=== PATIENT | male | born 1980 | race Caucasian/White ===

== ENCOUNTER 2023-04-16 01:45 | Emergency (ER) | payer OTHER ==
[2023-04-16 01:53] VITALS: BP 119/78; O2SAT 95
[2023-04-16] MEDS ORDERED: Zofran 4 MG/2 ML VIAL IV ONE (01:56)
[2023-04-16] MEDS ORDERED: TORAdol 30 mg Injection IV ONE (01:56)
--- NOTE | 2023-04-16 02:00 | ERPHSYRPT ---
- History of Present Illness Time Seen by Provider: 04/16/23 01:58 Source: patient Exam Limitations: no limitations Physician History: Patient is 42-year-old male with significant past medical history of recurrent migraine attacks started having another migraine episode at around 10 PM last night. Patient came to the emergency room at around 2:00 in the morning. Patient having a similar attack of migraine he has before mainly in the frontal area with photophobia. Patient denies any fever chills nausea vomiting or head injury. Timing/Duration: today Quality: stabbing Head Pain Location: frontal Severity of Pain-Max: severe Severity of Pain-Current: severe Recent Head Trauma: frequent headaches Modifying Factors: Improves With: exposure to light Associated Symptoms: denies symptoms Previous symptoms: same symptoms as today Allergies/Adverse Reactions: Sulfa (Sulfonamide Antibiotics) Allergy (Verified 04/16/23 01:50) - Review of Systems Constitutional: No Fever, No Chills Eyes: No Symptoms Ears, Nose, & Throat: No Symptoms Respiratory: No Cough, No Dyspnea Cardiac: No Chest Pain, No Edema, No Syncope Abdominal/Gastrointestinal: No Abdominal Pain, No Nausea, No Vomiting, No Diarrhea Genitourinary Symptoms: No Dysuria Musculoskeletal: No Back Pain, No Neck Pain Skin: No Rash Neurological: Headache, No Dizziness, No Focal Weakness, No Sensory Changes Psychological: No Symptoms Endocrine: No Symptoms All Other Systems: Reviewed and Negative - Past Medical History Pertinent Past Medical History: Yes Neurological History: Migraines ENT History: No Pertinent History Cardiac History: No Pertinent History Respiratory History: No Pertinent History Endocrine Medical History: No Pertinent History Musculoskeletal History: No Pertinent History GI Medical History: No Pertinent History History: No Pertinent History Psycho-Social History: No Pertinent History Male Reproductive Disorders: No Pertinent History - Past Surgical History Past Surgical History: No Neuro Surgical History: No Pertinent History Cardiac: No Pertinent History Respiratory: No Pertinent History Gastrointestinal: No Pertinent History Genitourinary: No Pertinent History Musculoskeletal: No Pertinent History Male Surgical History: No Pertinent History - Social History Drug Use: none - Nursing Vital Signs Nursing Vital Signs: Initial Vital Signs Temperature 97.6 F 04/16/23 01:45 Pulse Rate 64 04/16/23 01:45 Respiratory Rate 18 04/16/23 01:45 Blood Pressure 119/78 04/16/23 01:45 O2 Sat by Pulse Oximetry 95 04/16/23 01:45 Pain Scale Pain Intensity 10 - Physical Exam General Appearance: moderate distress, alert Eye Exam: PERRL/EOMI Ears, Nose, Throat Exam: normal ENT inspection, moist mucous membranes Neck Exam: normal inspection, supple, full range of motion, No meningismus Respiratory Exam: normal breath sounds, lungs clear Cardiovascular Exam: regular rate/rhythm, normal heart sounds Gastrointestinal/Abdominal Exam: soft, No tenderness, No distention Back Exam: normal inspection, normal range of motion Mental Status Exam: alert, oriented x 3, 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 Exam: normal speech, PERRL, No facial droop Coordination/Gait Exam: normal cerebellar function Motor/Sensory Exam: no motor deficit, no sensory deficit Skin Exam: normal color, warm, dry, No rash SpO2: 95 - Course Nursing assessment & vital signs reviewed: Yes Ordered Tests: Active Orders 24 hr Category Date Time Status Oxygen-ED Only Nasal Cannula 2 lpm Care 04/16/23 01:56 Active Medication Summary Generic Name Dose Route Start Last Admin Trade Name Freq PRN Reason Stop Dose Admin Sodium Chloride 1,000 mls @ 999 mls/hr 04/16/23 02:01 04/16/23 02:18 Sodium Chloride 0.9% 1000 Ml IV 04/16/23 03:01 999 mls/hr .Q1H1M STA Administration Discontinued Medications Generic Name Dose Route Start Last Admin Trade Name Freq PRN Reason Stop Dose Admin Droperidol 1.25 mg 04/16/23 01:56 04/16/23 02:19 Droperidol 5 Mg/2 Ml Vial IV 04/16/23 01:57 1.25 mg STAT ONE Administration Droperidol Confirm 04/16/23 02:13 Droperidol 5 Mg/2 Ml Vial Administered 04/16/23 02:14 Dose 5 mg .ROUTE .STK-MED ONE Sodium Chloride Confirm 04/16/23 02:13 Sodium Chloride 0.9% 1000 Ml Administered 04/16/23 02:14 Dose 1,000 mls @ ud .ROUTE .STK-MED ONE Ketorolac Tromethamine 30 mg 04/16/23 01:56 04/16/23 02:18 Ketorolac Tromethamine 30 Mg/Ml Inj IV 04/16/23 01:57 30 mg STAT ONE Administration Ketorolac Tromethamine Confirm 04/16/23 02:13 Ketorolac Tromethamine 30 Mg/Ml Inj Administered 04/16/23 02:14 Dose 30 mg .ROUTE .STK-MED ONE Ondansetron HCl 4 mg 04/16/23 01:56 04/16/23 02:18 Ondansetron Hcl 4 Mg/2 Ml Vial IV 04/16/23 01:57 4 mg STAT ONE Administration Ondansetron HCl Confirm 04/16/23 02:13 Ondansetron Hcl 4 Mg/2 Ml Vial Administered 04/16/23 02:14 Dose 4 mg .ROUTE .STK-MED ONE - Progress Progress: improved Air Movement: good Progress Note: 04/16/23 02:49 Patient is in deep sleep. Headache appears to be improving Blood Culture(s) Obtained: No Antibiotics given: No Counseled pt/family regarding: diagnosis, need for follow-up - Departure Departure Disposition: Home Clinical Impression: Migraine headache Qualifiers: Migraine type: unspecified Status migrainosus presence: without status migrainosus Intractability: intractable Qualified Code(s): G43.919 - Migraine, unspecified, intractable, without status migrainosus Condition: Stable Critical Care Time: No Referrals: DOCTOR,NO FAMILY [NON-STAFF PHY W/O PRIVILEGES] - Follow up with PCP 2 days Instructions: Headache, Adult (DC) Additional Instructions: Discharge/Care Plan CAMILLE STOVER was seen on 04/16/23 in the Emergency Room. The patient was counseled regarding Diagnosis,Lab results, Imaging studies, need for follow up and when to return to the Emergency Room. Prescriptions given: Discharge Note I have spoken with the patient and/or caregivers. I have explained the patient's condition, diagnosis and treatment plan based on the information available to me at this time. I have answered the patient's and/or caregiver's questions and addressed any concerns. The patient and/or caregivers have as good understanding of the patient's diagnosis, condition and treatment plan as can be expected at this point. The vital signs have been stable. The patient's condition is stable and appropriate for discharge from the emergency department. The patient will pursue further outpatient evaluation with the primary care physician or other designated or consulting physician as outlined in the discharge instructions. The patient and/or caregivers are agreeable to this plan of care and follow-up instructions have been explained in detail. The patient and/or caregivers have received these instruction. The patient/and or caregivers are aware that any significant change in condition or worsening of symptoms should prompt an immediate return to this or the closest emergency department or call 911. Prescriptions: Indomethacin 25 mg [Indocin 25 MG] 25 mg PO TID PRN #30 cap PRN Reason: Headache
[2023-04-16] MEDS ORDERED: Sodium Chloride 0.9% 1000 ML 1,000 ML IV STA (02:01)
[2023-04-16] MEDS ORDERED: Zofran 4 MG/2 ML VIAL ONE (02:13)
[2023-04-16] MEDS ORDERED: TORAdol 30 mg Injection ONE (02:13)
[2023-04-16] MEDS ORDERED: Sodium Chloride 0.9% 1000 ML 1,000 ML ONE (02:13)
[2023-04-16 02:59] VITALS: PULSE 52
== END 2023-04-16 03:08 | disposition home or self-care (01) ==
LOC: ED 01:45
DX: G43.919 Migraine, unspecified, intractable, without status migrainosus (principal)
CPT/HCPCS: 96374; 96375; 99283; J1885; J2405

== ENCOUNTER → 2023-08-07 | Emergency (ER) | payer OTHER ==
[~2023-08-07] MED LIST: BACIGUENT PACKET ONE; TORAdol 30 mg Injection IJ ONE; TORAdol 30 mg Injection ONE; TYLENOL 325 MG ONE
--- NOTE | 2023-08-07 08:49 | XRAY ---
Indication: Pain following fall. Comparison: None 2 view left femur demonstrates mild medial knee joint space narrowing. No other bony, articular, or soft tissue abnormalities.
== END ==
LOC: ED 01:00
DX: S70.12XA Contusion of left thigh, initial encounter (principal); W01.198A Fall on same level from slipping, tripping and stumbling with subsequent striking against other object, initial encounter; Y93.01 Activity, walking, marching and hiking; Y92.69 Other specified industrial and construction area as the place of occurrence of the external cause; Y99.0 Civilian activity done for income or pay; M79.652 Pain in left thigh; Z72.0 Tobacco use
CPT/HCPCS: 73552; 80307; 99282; J1885; A9270-GY

== ENCOUNTER 2024-01-27 19:25 | Emergency (ER) | payer BC, OTHER ==
[2024-01-27 19:44] VITALS: RESP 18; TEMP 97.9
--- NOTE | 2024-01-27 19:48 | ERPHSYRPT ---
- History of Present Illness Time Seen by Provider: 01/27/24 19:37 Source: patient Exam Limitations: no limitations Patient Subjective Stated Complaint: pt states that he woke up this morning with sharp pain to the rt side of the head Triage Nursing Assessment: pt ambulated into the er; pt is axo x4; c/o headache; pt states 10/10 pain; pupils 4 mm and PERRL; strong jeanmarie gizzard skin remover and pushes; steady easy gait; denies trauma or injury; denies N/V/D; denies dizziness; denies LOC; skin PDW; no respitatory distress; vital wnl Physician History: For the past 12 hours pt has had a sharp intermittent right occipital headache w ith episodes lasting less than 1 second & intensity of 10/10; denies tingling/numbness, fever, weakness, chest pain, shortness of air, nausea, vomiting. Allergies/Adverse Reactions: Sulfa (Sulfonamide Antibiotics) Allergy (Verified 01/27/24 19:35) Home Medications: No Reportable Medications [No Reported Medications] 01/27/24 [History] Hx Tetanus, Diphtheria Vaccination/Date Given: Yes Hx Influenza Vaccination/Date Given: Yes Hx Pneumococcal Vaccination/Date Given: No Travel Risk - International Travel Have you traveled outside of the country in past 3 weeks: No - Emerging Infectious Disease Are you exhibiting symptoms associated with any current EIDs: No - Review of Systems Constitutional: No Fever Respiratory: No Dyspnea Cardiac: No Chest Pain Abdominal/Gastrointestinal: No Abdominal Pain, No Nausea, No Vomiting Neurological: Headache - Past Medical History Pertinent Past Medical History: Yes Neurological History: Migraines ENT History: No Pertinent History Cardiac History: No Pertinent History Respiratory History: No Pertinent History Endocrine Medical History: No Pertinent History Musculoskeletal History: No Pertinent History GI Medical History: No Pertinent History History: No Pertinent History Psycho-Social History: No Pertinent History Male Reproductive Disorders: No Pertinent History - Past Surgical History Past Surgical History: No Neuro Surgical History: No Pertinent History Cardiac: No Pertinent History Respiratory: No Pertinent History Gastrointestinal: No Pertinent History Genitourinary: No Pertinent History Musculoskeletal: No Pertinent History Male Surgical History: No Pertinent History - Social History Smoking Status: Current every day smoker Exposure to second hand smoke: No Drug Use: none Patient Lives Alone: No - Nursing Vital Signs Nursing Vital Signs: Initial Vital Signs Temperature 97.9 F 01/27/24 19:36 Pulse Rate 77 04/06/24 19:36 Respiratory Rate 18 01/27/24 19:36 Blood Pressure 130/78 01/27/24 19:36 O2 Sat by Pulse Oximetry 97 01/27/24 19:36 Pain Scale Pain Intensity 10 - Physical Exam General Appearance: alert Eye Exam: PERRL/EOMI Ears, Nose, Throat Exam: TMs normal, pharyngeal erythema Neck Exam: normal inspection Respiratory Exam: lungs clear Cardiovascular Exam: normal heart sounds Gastrointestinal/Abdominal Exam: normal bowel sounds Mental Status Exam: alert, 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 A mucosal retention cyst within the left maxillary sinus.) Ordered Tests: Active Orders 24 hr Category Date Time Status IV Insertion STAT Care 01/27/24 19:54 Active HEAD WITHOUT CONTRAST [CT] Stat Exams 01/27/24 19:53 Completed Medication Summary Discontinued Medications Generic Name Dose Route Start Last Admin Trade Name Freq PRN Reason Stop Dose Admin Hydrocodone Bitart/Acetaminophen 2 tab 01/27/24 19:53 01/27/24 19:57 Hydrocodone/Apap 5/325 1 Tab Tablet PO 01/27/24 19:54 2 tab STAT ONE Administration Hydrocodone Bitart/Acetaminophen Confirm 01/27/24 19:55 Hydrocodone/Apap 5/325 1 Tab Tablet Administered 01/27/24 19:56 Dose 2 tab .ROUTE .K-MED ONE Lab/Rad Data: Laboratory Results 01/27/24 01/27/24 Range/Units 20:15 20:15 Influenza Type A Ag NEGATIVE (NEGATIVE) Influenza Type B Ag NEGATIVE (NEGATIVE) RSV (PCR) NEGATIVE (NEGATIVE) SARS-CoV-2 (PCR) NEGATIVE (NEGATIVE) Group A Strep Antibody NOT DETECTED (NEGATIVE) - Progress Progress: improved Counseled pt/family regarding: lab results, diagnosis, need for follow-up, rad results Medical Desision Making - Diagnostic Testing Diagnostic test were ordered, analyzed, and reviewed by me: Yes Radiological Interpretation: Teleradiologist Report - Departure Departure Disposition: Home Clinical Impression: Headache, Pharyngitis Condition: Stable Critical Care Time: No Referrals: DOCTOR,NO FAMILY [Primary Care Provider] - Follow up/PCP as directed Instructions: Headache, Adult (DC) Additional Instructions: Follow up with private doctor tomorrow. Forms: Work/School Release Form
[2024-01-27] MEDS ORDERED: NORCO 5/325 MG ONE (19:55)
[2024-01-27] MEDS: NORCO 5/325 MG PO ONE (19:57)
--- NOTE | 2024-01-27 20:33 | XRAY ---
CLINICAL HISTORY: pain COMPARISON: None. TECHNIQUE: Axial non-contrast CT scan of the brain was performed from the skull base to the high parietal region. One of the following dose reduction techniques were utilized for this exam: Automated exposure control, adjustment of the mA and/or kV according to patient size, use of iterative reconstruction. FINDINGS: The cerebral parenchyma exhibits normal attenuation. Lugo-white differentiation is well preserved. The ventricular system and subarachnoid CSF spaces are unremarkable. No midline shift was seen. The brainstem and cerebellum are normal in morphology and attenuation. No fracture was seen. A mucosal retention cyst is seen within the left maxillary sinus. IMPRESSION: 1. Unremarkable non-enhanced CT study of the brain. 2. A mucosal retention cyst within the left maxillary sinus. Electronically Signed by: Chiquita Sutton MD. (01/27/2024 20:30:06 EDT)
[2024-01-27 21:00] LABS: INFLUENZA A NEGATIVE (NEGATIVE); INFLUENZA B NEGATIVE (NEGATIVE); RESPIRATORY SYNCTIAL VIRUS NEGATIVE (NEGATIVE); SARS-CoV-2 Xpert Express NEGATIVE (NEGATIVE)
[2024-01-27 21:04] VITALS: BP 98/63; PULSE 69
[2024-01-27 21:18] VITALS: O2SAT 97
== END 2024-01-27 21:26 | disposition home or self-care (01) ==
LOC: ED 19:25
DX: R51.9 Headache, unspecified (principal); J02.9 Acute pharyngitis, unspecified; Z72.0 Tobacco use
CPT/HCPCS: 0241U; 36000; 70450; 87651; 99284; A9270-GY

== ENCOUNTER 2025-08-04 15:39 | Emergency (ER) | payer OTHER ==
--- NOTE | 2025-08-04 15:58 | ERPHSYRPT ---
- History of Present Illness Time Seen by Provider: 08/04/25 15:39 Source: patient Exam Limitations: no limitations Physician History: This is a 45-year-old male who slid into a truck with a piece of metal sticking out that he shows is approximately 2 inches long that stabbed him in the left lower leg across the lower anterior tibia region. Patient states he has mild aching pain. No significant bleeding. He has been able to walk without difficulty. No numbness or tingling. Patient's last tetanus was less than 10 years ago. No other complaints. Allergies/Adverse Reactions: Sulfa (Sulfonamide Antibiotics) Allergy (Verified 08/04/25 15:53) Hx Tetanus, Diphtheria Vaccination/Date Given: Yes Hx Influenza Vaccination/Date Given: Yes Hx Pneumococcal Vaccination/Date Given: No Travel Risk - Emerging Infectious Disease Are you exhibiting symptoms associated with any current EIDs: No - Review of Systems All Other Systems: Reviewed and Negative (As per HPI otherwise negative) - Past Medical History Pertinent Past Medical History: Yes Neurological History: Migraines ENT History: No Pertinent History Cardiac History: No Pertinent History Respiratory History: No Pertinent History Endocrine Medical History: No Pertinent History Musculoskeletal History: No Pertinent History GI Medical History: No Pertinent History History: No Pertinent History Psycho-Social History: No Pertinent History Male Reproductive Disorders: No Pertinent History - Past Surgical History Past Surgical History: No Neuro Surgical History: No Pertinent History Cardiac: No Pertinent History Respiratory: No Pertinent History Gastrointestinal: No Pertinent History Genitourinary: No Pertinent History Musculoskeletal: No Pertinent History Male Surgical History: No Pertinent History - Social History Smoking Status: Current every day smoker Exposure to second hand smoke: No Drug Use: none Patient Lives Alone: No - Social Determinants of Health Will the patient participate in the screening: Yes Do you worry about a steady place to live?: No In the past 12 months,have you had to go without utilities?: No Transportation Issues: No Has anyone in your support network made you feel unsafe?: No Have you or anyone in your house had to go w/o enough food: No - Nursing Vital Signs Nursing Vital Signs: Initial Vital Signs Temperature 97.6 F 08/04/25 15:43 Pulse Rate 79 08/04/25 15:43 Respiratory Rate 18 08/04/25 15:43 Blood Pressure 158/99 08/04/25 15:43 O2 Sat by Pulse Oximetry 97 08/04/25 15:43 Pain Scale Pain Intensity 8 - Physical Exam Comments: 08/04/25 16:14 General: Well-nourished well-developed. No apparent distress. HEENT: Normocephalic atraumatic no obvious facial or neck deformity or injury. Neck: Supple. No deformity or mass noted. CV: RRR NL Perfusion. No edema Resp: No Respiratory distress or adventitious breath sounds Abd: ND SNT MSK: Left lower leg distal one third of tibia with a 3 x 2 cm triangular avulsed laceration across area of the tibia. No active bleeding. No significant tenderness. No significant depth with sterile cotton tip applicator probing. 2+ dorsalis pedis and posterior tibial pulse. Normal full foot dorsi and pedal flexion. Less than 2-second capillary refill. Distal sensation intact in all toes and foot. Neuro: Alert and [place] x4. No gross focal neurologic changes Psych: No SI, HI or grave disability Procedures - Laceration/Wound Repair Left Lower Anterior Medial Distal Other Time of Procedure: 16:28 Wound Location: Left, lower leg Wound Length (cm): 3 Wound's Depth, Shape: into muscle, irregular, flap, into subcut Wound Explored: clean Irrigated: Yes (500cc NS w/ high pressure 20cc Syringe) Hibiclens Prep: Yes Anesthesia: local, 1% Lidocaine Volume Anesthetic (ccs): 5 Wound Repaired With: [place] Number of Sutures: 9 (Jazmine) Layer Closure?: No Sterile Dressing Applied?: Yes Ordered Tests: Medication Summary Discontinued Medications Generic Name Dose Route Start Last Admin Trade Name Timothy PRN Reason Stop Dose Admin Ceftriaxone Sodium 1,000 mg 08/04/25 16:06 08/04/25 16:12 Ceftriaxone Sodium 1000 Mg Inj Vial IM 08/04/25 16:07 1,000 mg STAT ONE Administration Ceftriaxone Sodium Confirm 08/04/25 16:10 Ceftriaxone Sodium 1000 Mg Inj Vial Administered 08/04/25 16:11 Dose 1,000 mg .ROUTE .STK-MED ONE Lidocaine HCl 5 ml 08/04/25 16:07 08/04/25 16:13 Lidocaine Hcl 1% 20 Ml Mdv 20 Ml Ml IJ 08/04/25 16:08 5 ml STAT ONE Administration Lidocaine HCl Confirm 08/04/25 16:10 Lidocaine Hcl 1% 20 Ml Mdv 20 Ml Ml Administered 08/04/25 16:11 Dose 1 ml .ROUTE .[facility] ONE - Progress Progress Note: 08/04/25 16:38 After deep wound irrigation and wound closure patient is given wound care instructions and wound check in 48 hours if there is any redness warmth or discharge to return immediately the emergency department. [place] out in 8 to 10 days. Rocephin given. Due to nature we will give the Augmentin antibiotic 5 days. Patient's tetanus up-to-date. The patient's condition was discussed with themselves and/or family members in great detail. Precautions are given and need to return or call 911 immediately for any changes or worsening are discussed. Instructions on patient's condition and noting that conditions can change or worsen and that diagnosis are presumptive and can evolve are discussed. All questions were answered. All concerns addressed at this time - Departure Departure Disposition: Home Clinical Impression: Laceration of leg Qualifiers: Encounter type: initial encounter Laterality: left Qualified Code(s): S81.812A - Laceration without foreign body, left lower leg, initial encounter Condition: Stable Critical Care Time: No Referrals: DOCTOR,NO FAMILY [Primary Care Provider, UNKNOWN] - Follow up/PCP as directed Instructions: Wound Care (DC) Additional Instructions: [place] out in 8 to 10 days. You have been evaluated for an emergency medical condition. At this time, given the current history and events presented, the examination conducted and any possible testing you may have had, you have been given a presumptive diagnosis based on the current information is obtained. Your discharge diagnosis is presumptive and not necessarily definitive. Medical conditions present in various stages very often without all the symptoms or findings described in medical literature. Other symptoms, concerns or conditions may arise and your diagnoses may evolve or change and/or your condition could potentially worsen after the time of disposition or discharge. You have been given a presumptive diagnosis and your condition appears to be stable, but your medical issues can change or worsen. If there is worsening of your condition including difficulty breathing, sw[place] wing, speaking, chest pain or pressure, intractable vomiting, worsening or changing mental status, numbness, tingling or weakness of your body or arms or legs, thoughts or plans of harming yourself or others, or any other concerns, call 911 and/or return immediately to the closest emergency department. It is important you follow-up with your doctor on the next business day. Call your doctor, or the referral provided if you do not have a doctor, when they open to schedule a follow-up appointment in the next 1 or latest 2 days. Please refer to the attached sheet. If you do not have primary care doctor, you can call the [facility] referral line at [phone]. Return immediately if your symptoms worsen or if you are unable to obtain further care. My team and I thank you for choosing the [facility] Emergency Department emergency healthcare needs. We wish you a speedy recovery. Very respectfully, Dr. Sully Scruggs M.D. [place] [employer] Board-certified Emergency Physician Prescriptions: Amox Tr/Potass Clav. 875 mg [Augmentin 875-125 Tablet] 1 each PO BID 10 Days #20 tablet
[2025-08-04 16:00] VITALS: TEMP 97.6
[2025-08-04] MEDS ORDERED: XYLOCAINE 1% HCL 20 ML MDV ONE (16:10)
[2025-08-04] MEDS ORDERED: Rocephin 1000 MG INJ ONE (16:10)
[2025-08-04] MEDS: Rocephin 1000 MG INJ IM ONE (16:12)
[2025-08-04] MEDS: XYLOCAINE 1% HCL 20 ML MDV IJ ONE (16:13)
[2025-08-04] MEDS ORDERED: BACIGUENT PACKET ONE (16:35)
[2025-08-04 16:44] VITALS: BP 147/96; PULSE 56; RESP 16; O2SAT 97
== END 2025-08-04 16:45 | disposition home or self-care (01) ==
LOC: ED 15:39
DX: S81.812A Laceration without foreign body, left lower leg, initial encounter (principal); V58.4XXA Person boarding or alighting a pick-up truck or van injured in noncollision transport accident, initial encounter; Z72.0 Tobacco use; Z79.899 Other long term (current) drug therapy